=== PATIENT | male | born 1955 | race Caucasian/White ===

== ENCOUNTER → 2017-01-03 | Day surgery (SDC) | payer OTHER ==
[~2017-01-03] MED LIST: CHLORTHALIDONE25 MG PO; FLAGYL500 MG PO; LEVAQUIN500 MG PO; METFORMIN HCL500 MG PO; NAPROXEN500 MG PO; NORCO 5-325 TA1 EACH PO; PROZAC20 MG PO; SINGULAIR10 MG PO; ZYRTEC10 MG PO
== END | disposition home or self-care (01) ==
LOC: OR 06:08
PROVIDERS: Surgery
PROC: 0DJD8ZZ Inspection of Lower Intestinal Tract, Via Natural or Artificial Opening Endoscopic (ICD-10-PCS; principal; 2017-01-03 07:30)
DX: K57.30 Diverticulosis of large intestine without perforation or abscess without bleeding (principal); K64.8 Other hemorrhoids; J43.9 Emphysema, unspecified; E10.9 Type 1 diabetes mellitus without complications; M19.90 Unspecified osteoarthritis, unspecified site; F41.9 Anxiety disorder, unspecified; F32.9 Major depressive disorder, single episode, unspecified; Z79.899 Other long term (current) drug therapy
CPT/HCPCS: 82962; 93005; J7030

== ENCOUNTER 2020-05-11 11:44 | Emergency (ER) | payer OTHER ==
[~2020-05-11 11:44] MED LIST changes: +BACTRIM DS TAB1 EACH PO; +CEFPODOXIME PR200 MG PO; +ECOTRIN81 MG PO; +FLONASE 0.05% N16 GM; +LORTAB 5-325 M1 EACH PO; +OXYCODONE HCL5 MG PO; +PRAVACHOL40 MG PO; +ZESTRIL2.5 MG PO; +ZYVOX600 MG PO
[2020-05-11 12:28] LABS: HEMOGLOBIN 15.4 gm/dl (14.0-17.5); RED BLOOD COUNT 5.11 M/UL (4.20-5.50)
[2020-05-11 12:51] LABS: BUN/CREATININE RATIO 24 (0-10)
[2020-05-11] MEDS ORDERED: ZITHROMAX250 MG PO (14:15)
[2020-05-11] MEDS ORDERED: OMNICEF 300 MG300 MG PO (14:15)
[2020-05-11] MEDS ORDERED: DECADRON6 MG PO (14:15)
[2020-05-11] MEDS ORDERED: PROVENTIL HFA6.7 GM INH (14:15)
== END 2020-05-11 15:05 | disposition home or self-care (01) ==
LOC: ER1 11:44
PROVIDERS: Physician Assistant
DX: U07.1 COVID-19 (principal); J12.82 Pneumonia due to coronavirus disease 2019
CPT/HCPCS: 71045; 80053; 85025; 96374; 96375; 96376; 99284; J1100; J2405; J7030; U0002